=== PATIENT | male | born 1980 | race Asian ===

== ENCOUNTER → 2016-08-08 | Outpatient (CLI) | payer MEDICAID ==
--- NOTE | 2016-08-08 15:54 | DX ---
Chest, Two Views at 1337 hours History: Muscular chest pain, R 07.89. Comparison: None. Findings: Cardiac silhouette is within normal range. No pneumonia, congestive heart failure, pleura l effusion, or pneumothorax. Impression: No acute pulmonary disease.
== END ==
LOC: BRMIMAGING 13:35
PROVIDERS: ATTEND Physician Assistant
DX: R07.89 Other chest pain (principal)
CPT/HCPCS: 71020-PO